=== PATIENT | male | born 1955 | race African-American/Black ===

== ENCOUNTER → 2016-07-10 | Outpatient (CLI) | payer BC, OTHER ==
[~2016-07-10] MED LIST: CIAL5TAB PO
== END | disposition home or self-care (01) ==
LOC: M ONCR 13:37
PROVIDERS: ATTEND Radiology Radiation Oncology
DX: C61 Malignant neoplasm of prostate (principal)

== ENCOUNTER → 2016-09-04 | Outpatient (CLI) | payer BC, OTHER ==
--- NOTE | 2016-09-06 12:25 | RADONC ---
RADIATION ONCOLOGY FOLLOWUP NOTE DATE: 09/06/2016 CHART NUMBER: [id number]. DIAGNOSIS: Prostate cancer. STAGE: Stage is 1, [id number]. ECOG PERFORMANCE STATUS: 0 FOLLOWUP NOTE: Mr. Leung is a very pleasant, 61-year-old black male with the diagnosis of a stage I, [id number] moderately differentiated Traci score 6 (3 + 3) adenocarcinoma of prostate who is presenting to us today for routine followup visit 1 year and 7 months of post completion of external beam radiation therapy. The patient presents today reporting that he is doing quite well with no complaints at this time related to his radiation therapy or disease. He has no urinary or bowel difficulties and no bone pain. REVIEW OF SYSTEMS: The patient's review of systems is largely noncontributory. Denies nausea, vomiting, fevers, chills, night sweats, diplopia, headaches, anxiety or depression, anorexia, weight loss, visual disturbances, chest pain, urinary or bowel difficulties, bone pain, or neurological problems. PHYSICAL EXAMINATION: The patient is a well-developed, well-nourished, black male in no acute distress. HEENT exam is normocephalic, atraumatic. Extraocular movements are intact. There is no palpable cervical, supraclavicular, infraclavicular, axillary, or inguinal lymphadenopathy present. Lungs are clear to auscultation and percussion. Heart has a regular rate and rhythm. Abdomen is benign with no hepatosplenomegaly, masses, or tenderness. Rectal examination reveals a normal anal sphincter tone. His prostate is smooth with no evidence of nodularity. Skeletal examination reveals no tenderness to pressure or percussion of the bony skeleton. Extremities reveal no clubbing, cyanosis, or edema. Neurologic exam is grossly intact, as is the remainder of the physical examination. ASSESSMENT: Patient is presenting to us today and has had a repeat PSA done on 09/03/2016, which has now risen to 3.45. Previous PSA on 07/10/2016 was 3.02. The fly of his PSA on 12/21/2015 was 1.68. All his other PSA has had been in the present range. The PSA 06/12/2015 was 3.62. The pattern I am seeing here is a decrease in PSA, which went down slowly after treatment to a low of 1.68. It has now been rising and is at a level of 3.45. I have reviewed the current NCCN guidelines with this patient for what appears to be a biochemical failure following radiation in a patient with greater than 10-year life expectancy and PSA below 10. I believe he may be a candidate for further evaluation for possible local retreatment. Further workup would be indicated as well as a possible TRUS biopsy prior to further recommendations. I am sending the patient back to Dr. Norman for his review of the NCCN guidelines in this case and his expert opinion with regards to further workup, biopsy and possible local treatment. I have set the patient to come back to me in followup in 2 months' time following his appointment with Dr. Norman. We will repeat the PSA then to see if this is truly a trend. Further recommendations of course will be made at that point. cc: MD Norm Main MD
== END ==
LOC: M ONCR 10:32
PROVIDERS: ATTEND Radiology Radiation Oncology
DX: C61 Malignant neoplasm of prostate (principal)

== ENCOUNTER → 2019-07-05 | Outpatient (REF) | payer OTHER ==
[2019-07-05 13:52] LABS: APPEARANCE, URINE CLEAR (CLEAR); BACTERIA, URINE AUTO NEGATIVE (NEGATIVE); BILIRUBIN, URINE AUTO NEGATIVE (NEGATIVE); BLOOD, URINE BLOOD NEGATIVE (NEGATIVE); COLOR, URINE YELLOW (YELLOW); GLUCOSE, URINE (UA) AUTO 3+ mg/dL (NEGATIVE); KETONE, URINE AUTO NEGATIVE (NEGATIVE); LEUKOCYTE ESTERASE, URINE AUTO NEGATIVE (NEGATIVE); NITRITE, URINE AUTO NEGATIVE (NEGATIVE); PROTEIN, URINE AUTO NEGATIVE (NEGATIVE); RBC, URINE AUTO 1 /HPF (0-3); SPECIFIC GRAVITY URINE AUTO 1.033 (1.002-1.035); SQUAMOUS EPITHELIAL CELL UR AU 0 /HPF (0-6); UROBILINOGEN, URINE AUTO 0.2 mg/dL (0.0-2.0); WBC, URINE AUTO 0 /HPF (0-3)
== END ==
LOC: M SMT 13:01
PROVIDERS: ATTEND Nurse Practitioner Family
DX: R31.9 Hematuria, unspecified (principal)

== ENCOUNTER → 2020-10-03 | Outpatient (CLI) | payer BC, OTHER ==
[~2020-10-03] MED LIST changes: +ECOT81TA5 PO; +EZET10TA21 PO; +FERR325T3 PO; +FINA5TAB2 PO; +FURO40TA2 PO; +GLIP5TAB20 PO; +IBUP-1022 PO; +JANU50TA25 PO; +JARD1TAB3 PO; +LORA-674 PO; +METO1TAB32 PO; +POTA1TAB23 PO; +SAW1CAPS2 PO; +TAMS1CAP17 PO; +VALS1TAB66 PO; +VITA500T9 PO; +VITMTA PO
[2020-10-03 14:58] LABS: INR 0.92; PROTHROMBIN TIME 12.6 SECONDS (12.5-14.3)
[2020-10-03 14:59] LABS: PARTIAL THROMBOPLASTIN TIME 30.3 SECONDS (24.2-38.5)
[2020-10-03 15:16] LABS: LDH LACTATE DEHYDROGENASE 174 U/L (87-241)
[2020-10-03 15:31] LABS: HEPATITIS B SURFACE ANTIBODY NEGATIVE (POSITIVE)
[2020-10-03 15:42] LABS: HEPATITIS B SURFACE ANTIGEN NEGATIVE (NEGATIVE)
[2020-10-03 16:10] LABS: HIV 1&2 SCREEN CENTAUR NEGATIVE (NEGATIVE)
== END ==
LOC: M LAB 14:07
PROVIDERS: ATTEND Internal Medicine Medical Oncology
DX: D72.829 Elevated white blood cell count, unspecified (principal)

== ENCOUNTER → 2020-10-12 | Outpatient (CLI) | payer BC, OTHER ==
[~2020-10-12] MED LIST changes: +LIDOCAINE 1% MDV 20ML VIAL As Ordered ONE
[2020-10-12 09:43] LABS: BASO # 0.2 10^3/uL (0.0-0.2); BASO % 0.3 % (0.0-1.0); EOS # 0.3 10^3/uL (0.0-0.5); EOS % 0.5 % (0.0-3.0); HEMATOCRIT 41.6 % (42.0-52.0); HEMOGLOBIN 12.8 g/dl (13.5-17.5); LYMPH # 48.8 10^3/uL (1.5-5.0); LYMPH % 80.7 % (24.0-44.0); MEAN CORPUSCULAR HEMOGLOBIN 23.4 pg (27.0-33.0); MEAN CORPUSCULAR HGB CONC 30.8 g/dl (32.0-36.5); MEAN CORPUSCULAR VOLUME 75.9 fl (80.0-96.0); MONO # 8.2 10^3/uL (0.0-0.8); MONO % 13.5 % (2.0-8.0); NEUTROPHILS # 2.8 10^3/uL (1.5-8.5); NEUTROPHILS % 4.7 % (36.0-66.0); PLATELET COUNT, AUTOMATED 260 10^3/uL (150-450); RED BLOOD COUNT 5.48 10^6/uL (4.30-6.10)
[2020-10-12 09:51] LABS: WHITE BLOOD COUNT 60.4 10^3/uL (4.0-10.0)
[2020-10-12 10:30] VITALS: BP 136/62
--- NOTE | 2020-10-12 17:05 | REP ---
INDICATION: LEUKOCYTOSIS. COMPARISON: None. TECHNIQUE: The procedure was performed under the direct supervision of Dr. Rios. The risks and benefits of the procedure were explained to the patient and informed consent was obtained. The right iliac ala was localized using CT guidance. The skin was prepped and draped in a sterile fashion. 1% lidocaine was used as a local anesthetic. Using CT guidance an 11 gauge bone biopsy needle system was inserted. 5 cc of marrow fluid was withdrawn. One core sample was then obtained. The patient tolerated the procedure well and there were no immediate complications. After the appropriate amount to monitor convalescence the patient was discharged from the department. FINDINGS: None IMPRESSION: CT-guided right iliac bone marrow biopsy <Electronically signed by Ritesh Carpenter > 10/12/20 [id number] <Electronically signed by Reyes Rios > 10/12/20 [id number]
== END ==
LOC: M IRPRO 08:48
PROVIDERS: ATTEND Internal Medicine Medical Oncology
DX: D72.829 Elevated white blood cell count, unspecified (principal)

== ENCOUNTER → 2020-10-16 | Outpatient (CLI) | payer BC, OTHER ==
[~2020-10-16] MED LIST changes: -LIDOCAINE 1% MDV 20ML VIAL As Ordered ONE
--- NOTE | 2020-10-18 11:06 | REP ---
INDICATION: DIAGNOSING MATLE CELL LYMPHOMA. Leukocytosis. Peripheral blood flow cytometry from September of 2020 showing mantle cell lymphoma. There is a history of prostate malignancy treated with radiation in 2015 COMPARISON: None. TECHNIQUE: Approximately 45 minutes following the intravenous injection of a 16.27 mCi dose of F-18 FDG, three-dimensional PET scintigraphy is acquired from the skull base to the proximal thighs. Triplanar noncontrast CT scanning is acquired through the same anatomic range for attenuation correction, and image registration with scan parameters optimized to minimize radiation exposure to the patient. PET scintigraphy and CT datasets were fused and displayed on a workstation with multiplanar and projection display capability. FINDINGS: Head and neck soft tissues are unremarkable. There is periarticular arthropathy associated soft tissue uptake in the right shoulder consistent with arthritis. No abnormal hypermetabolic uptake is seen within the thorax. No pulmonary parenchymal, hilar, or mediastinal hypermetabolic uptake is seen. In the abdomen and pelvis, normal hepatic, splenic, gastrointestinal, and genitourinary FDG distribution is seen. No abnormal hypermetabolic uptake is seen in the abdomen or pelvis. No abnormal skeletal uptake is appreciated. There are fiducial markers visible in the prostate. The spleen is enlarged measuring 16.6 cm in craniocaudal span. No focal or diffuse increased uptake is seen however. IMPRESSION: Negative PET scintigraphy. No suspicious hypermetabolic uptake is seen. Mild splenomegaly is observed. Fiducial markers are noted in the prostate. <Electronically signed by Drake Humphries > 10/18/20 [id number]
== END ==
LOC: M PLARAD 14:11
PROVIDERS: ATTEND Internal Medicine Medical Oncology
DX: C83.11 Mantle cell lymphoma, lymph nodes of head, face, and neck (principal)
CPT/HCPCS: 78815; A9552

== ENCOUNTER → 2021-12-25 | Outpatient (CLI) | payer MEDICARE, BC, OTHER ==
[~2021-12-25] MED LIST changes: +COVI30VI IM; +GASTROGRAFIN SOLUTION 30ML (Q9963) As Ordered ONE; +ISOVUE-370 76% 100ML VIAL As Ordered ONE
== END ==
LOC: M RAD 11:34
PROVIDERS: ATTEND Internal Medicine
DX: C85.10 Unspecified B-cell lymphoma, unspecified site (principal)
CPT/HCPCS: 71260; 74177; Q9963; Q9967

== ENCOUNTER → 2024-06-08 | Outpatient (CLI) | payer MEDICARE, BC, OTHER ==
[~2024-06-08] MED LIST changes: +AMLO10TA PO; +AMLO1TAB25 PO; +ASPI-226 PO; +CETI-24 PO; +CETI10CH PO; +COVI50SY IM; +ENTR1TAB4 PO; +EPLE25TA15 PO; +FERR325T19 PO; +GABA-1172 PO; -GASTROGRAFIN SOLUTION 30ML (Q9963) As Ordered ONE; -ISOVUE-370 76% 100ML VIAL As Ordered ONE; +LABE100T40 PO; +LABE100T6 PO; +LORA-1041 PO; -LORA-674 PO; +METF10004 PO; +METO1TAB7 PO; +PROHANCE 279.3MG/ML 15ML VIAL ONE; +PROHANCE 279.3MG/ML 5ML VIAL ONE; +TADA20TA PO; +THERTAB52 PO; +TOPR50TA PO; +TRUL0.5I SC; +TRUL10IN SC; +VITA1CAP25 PO; +XALA0.007 OU; +ZANU80CA PO
== END ==
LOC: M PLAIMG 14:25
PROVIDERS: ATTEND Internal Medicine
DX: M54.2 Cervicalgia (principal)
CPT/HCPCS: 72156; A9576

== ENCOUNTER 2024-06-10 08:22 | Day surgery (SDC) | payer MEDICARE, BC, OTHER ==
[~2024-06-10] VITALS: Ht 170.2 cm; Wt 112.5 kg
[~2024-06-10 08:22] MED LIST changes: -LABE100T40 PO; -PROHANCE 279.3MG/ML 15ML VIAL ONE; -PROHANCE 279.3MG/ML 5ML VIAL ONE
[2024-06-10] MEDS ORDERED: LABE100T40 PO (08:48)
[2024-06-10] MEDS ORDERED: LIDOCAINE 2% 100MG/5ML SDV (FOR ANES.) As Ordered ONE (10:04)
[2024-06-10] MEDS ORDERED: propofoL 200 MG/20 ML VIAL As Ordered ONE (10:04)
[2024-06-10 10:22] VITALS: TEMP 97.5
[2024-06-10 10:38] VITALS: BP 14/65; O2SAT 99
== END 2024-06-10 10:40 | disposition home or self-care (01) ==
LOC: M OPP 08:22
PROVIDERS: ATTEND Internal Medicine Gastroenterology
DX: Z12.11 Encounter for screening for malignant neoplasm of colon (principal); Z12.12 Encounter for screening for malignant neoplasm of rectum; K64.8 Other hemorrhoids; E11.9 Type 2 diabetes mellitus without complications; Z85.46 Personal history of malignant neoplasm of prostate; Z85.72 Personal history of non-Hodgkin lymphomas; I10 Essential (primary) hypertension; E78.00 Pure hypercholesterolemia, unspecified; Z92.3 Personal history of irradiation; Z86.73 Personal history of transient ischemic attack (TIA), and cerebral infarction without residual deficits; Z79.899 Other long term (current) drug therapy; Z79.85 Long-term (current) use of injectable non-insulin antidiabetic drugs; Z79.84 Long term (current) use of oral hypoglycemic drugs; Z79.82 Long term (current) use of aspirin; Z88.8 Allergy status to other drugs, medicaments and biological substances; Z87.891 Personal history of nicotine dependence

== ENCOUNTER → 2025-06-28 | Outpatient (CLI) | payer MEDICARE, BC, OTHER ==
[~2025-06-28] MED LIST changes: +AMLO-751 PO; -AMLO10TA PO; -EZET10TA21 PO; +EZET10TA57 PO; +GLIP-318 PO; -GLIP5TAB20 PO; -IBUP-1022 PO; +IBUP600T42 PO; +LABE100T40 PO; -LABE100T6 PO; +LABE100T91 PO; +ROSU10TA90; +SEMA0.257; +ZANU160T PO
== END ==
LOC: M RAD 09:12
PROVIDERS: ATTEND Internal Medicine
DX: N40.0 Benign prostatic hyperplasia without lower urinary tract symptoms (principal); I10 Essential (primary) hypertension